=== PATIENT | female | born 2000 | race African-American/Black ===

== ENCOUNTER 2022-09-21 17:23 | Emergency (ER) | payer OTHER ==
[~2022-09-21] VITALS: Ht 172.7 cm; Wt 70.3 kg
[2022-09-21] MEDS ORDERED: ONDANSETRON HCL 4 MG ORAL DISINTEGRATING TAB ONE (18:37)
[2022-09-21] MEDS ORDERED: ONDANSETRON HCL 4 MG ORAL DISINTEGRATING TAB PO ONE (18:45)
[2022-09-21] MEDS ORDERED: MECLIZINE HCL 12.5 MG TAB PO ONE (18:45)
[2022-09-21 18:48] LABS: CLARITY,URINE CLEAR (CLEAR); COLOR,URINE YELLOW (YELLOW)
[2022-09-21 18:49] LABS: KETONES,URINE NEGATIVE (NEGATIVE); LEUKOCYTE ESTERASE ,URINE NEGATIVE (NEGATIVE); NITRITE,URINE NEGATIVE (NEGATIVE); PROTEIN,URINE DIPSTICK NEGATIVE (NEGATIVE); URINE UROBILINOGEN 0.2 mg/dL (0.2 - 1)
[2022-09-21 19:02] LABS: BACTERIA,URINE RARE /HPF; EPITHELIAL CELLS,URINE MODERATE /LPF; WBC,URINE (MAN) 0-5 /HPF (0-5)
[2022-09-21] MEDS ORDERED: ONDANSETRON ODT4 MG PO (19:09)
[2022-09-21] MEDS ORDERED: ANTIVERT25 M1 PO (19:09)
[2022-09-21 19:15] VITALS: BP 105/69
== END 2022-09-21 19:10 | disposition home or self-care (01) ==
LOC: ER 17:44
DX: R11.2 Nausea with vomiting, unspecified (principal); T75.3XXA Motion sickness, initial encounter; F17.210 Nicotine dependence, cigarettes, uncomplicated
CPT/HCPCS: 81001; 81025; 99283; J8597; Q0162